=== PATIENT | male | born 1955 | race Caucasian/White ===

== ENCOUNTER → 2020-07-30 12:58 | Outpatient (BNVA) | payer OTHER, SELFPAY | PROVIDERS: PCP Emergency Medicine Emergency Medical Services; Visit Provider Surgery | DX: Z01.812 Encounter for preprocedural laboratory examination (principal); Z20.828 Contact with and (suspected) exposure to other viral communicable diseases | CPT/HCPCS: 87635 ==

== ENCOUNTER 2020-08-05 08:22 | Day surgery (SDC) | payer OTHER, SELFPAY ==
[2020-08-03 13:25] VITALS: BMI 25.8
[2020-08-05 08:41] VITALS: BP 134/63; PULSE 77; RESP 18; TEMP 36.3; O2SAT 98
[2020-08-05] MEDS: sodium chloride 0.9% 1,000 ML 30 ML IV (08:55)
--- NOTE | 2020-08-05 09:19 | ANES.PREANE2 ---
Pre-Anesthetic Assessment Pre-Anesthetic Assessment: Height/Weight: Height 1.73 m Weight 77.111 kg Temp Pulse Resp BP Pulse Ox 97.3 F L 77 18 134/63 98 08/05/20 08:41 08/05/20 08:41 08/05/20 08:41 08/05/20 08:41 08/05/20 08:41 Preop Diagnosis: Screening/dysphagia Proposed Procedure: Operation Date: 08/05/20 09:30 Proposed Procedures p EGD 60424 z12.11 16011 K74.60(Not Applicable) - Johnie Dixon MD s Colonoscopy(Not Applicable) - Johnie Dixon MD Familial anesthetic complications: None Was Beta Tony taken within 24 hours: N/A Last intake: Intake Last Liquid Date 08/04/20 Last Liquid Time 21:00 Last Solid Date 08/03/20 Last Solid Time 20:30 Social: Social History: Tobacco and No alcohol Exam: Pre-Anes Outpt Exam: alert, oriented x 3, clear to auscultation bilaterally and regular rate & rhythm Airway: Cervical ROM: WNL MP: 3 Dentition: False GI: GI: GERD Musc/skel: Musc/skel: Lower Back Pain Anesthetic Plan: ASA status: 2 Anesthesia: MAC Risk of > 500 ml blood loss (7ml/kg in children): No Meds/Allergies Current Medications: Current Medications Generic Name Dose Route Start Last Admin Trade Name Freq PRN Reason Stop Dose Admin Sodium Chloride 1,000 mls @ 30 ml s/hr 08/05/20 08:45 08/05/20 08:55 Sodium Chloride 0.9% IV 30 mls/hr .Q24H DAMIEN Administration PFSH Anesthesia PFSH: Medical History BPH (benign prostatic hyperplasia) Renal calculi Surgical History H/O cataract extraction H/O circumcision H/O colonoscopy H/O cystoscopy H/O lithotripsy H/O sinus surgery History of tonsillectomy Family History Mother Cancer Family/Other Cancer Other Diabetes Denies family history of CAD (coronary artery disease) Anesthesia complication Bleeding disorder Social History Smoking and tobacco status: current every day smoker Alcohol intake: current Alcohol intake frequency: holidays/special occasions only Household members: spouse Marital status: Current occupational status: disabled History of recent travel: No Data Anesthesia Cardiac Studies: No Data to Display
--- NOTE | 2020-08-05 09:52 | ANES.PREANE2 ---
Pre-Anesthetic Assessment Pre-Anesthetic Assessment: Height/Weight: Height 1.73 m Weight 77.111 kg Temp Pulse Resp BP Pulse Ox 97.3 F L 77 18 134/63 98 08/05/20 08:41 08/05/20 08:41 08/05/20 08:41 08/05/20 08:41 08/05/20 08:41 Preop Diagnosis: Screening/dysphagia Proposed Procedure: Operation Date: 08/05/20 09:30 Proposed Procedures p EGD 30390 z12.11 95185 K74.60(Not Applicable) - Johnie Dixon MD s Colonoscopy(Not Applicable) - Johnie Dixon MD Familial anesthetic complications: none Was Beta Tony taken within 24 hours: N/A Last intake: Intake Last Liquid Date 08/04/20 Last Liquid Time 21:00 Last Solid Date 08/03/20 Last Solid Time 20:30 Social: Social History: No alcohol and No tobacco Exam: Pre-Anes Outpt Exam: alert, oriented x 3, clear to auscultation bilaterally and regular rate & rhythm Airway: Cervical ROM: WNL MP: 3 Dentition: False GI: GI: GERD Anesthetic Plan: ASA status: 2 Anesthesia: MAC Risk of > 500 ml blood loss (7ml/kg in children): No Meds/Allergies Current Medications: Current Medications Generic Name Dose Route Start Last Admin Trade Name Freq PRN Reason Stop Dose Admin Sodium Chloride 1,000 mls @ 30 ml s/hr 08/05/20 08:45 08/05/20 08:55 Sodium Chloride 0.9% IV 30 mls/hr .Q24H DAMIEN Administration PFSH Anesthesia PFSH: Medical History BPH (benign prostatic hyperplasia) Renal calculi Surgical History H/O cataract extraction H/O circumcision H/O colonoscopy H/O cystoscopy H/O lithotripsy H/O sinus surgery History of tonsillectomy Family History Mother Cancer Family/Other Cancer Other Diabetes Denies family history of CAD (coronary artery disease) Anesthesia complication Bleeding disorder Social History Smoking and tobacco status: current every day smoker Alcohol intake: current Alcohol intake frequency: holidays/special occasions only Household members: spouse Marital status: Current occupational status: disabled History of recent travel: No Data Anesthesia Cardiac Studies: No Data to Display
--- NOTE | 2020-08-05 09:53 | W.PM.OPSUD ---
Surgery/Procedure H&P Update DATE OF PROCEDURE: August 05, 2020 DATE H&P PERFORMED: 07/23/20 H&P UPDATE INFORMATION: I have reviewed H&P completed within last 30 days, I have examined patient prior to procedure and No changes to prior documentation PREOP DIAGNOSIS: Screening/dysphagia PLANNED PROCEDURE: Operation Date: 08/05/20 09:30 Proposed Procedures p EGD 69895 z12.11 43791 K74.60(Not Applicable) - Johnie Dixon MD s Colonoscopy(Not Applicable) - Johnie Dixon MD
[2020-08-05 10:35] VITALS: BP 102/67; PULSE 68; RESP 14; TEMP 36.6; O2SAT 93
[2020-08-05 10:50] VITALS: BP 124/87; PULSE 77; RESP 18; TEMP 36.5; O2SAT 97
--- NOTE | 2020-08-05 14:22 | ANE.PACU2 ---
Inpatient post-anesthesia follow up: Airway intact: Yes Vital signs: Temperature 97.7 F Pulse Rate 77 Respiratory Rate 18 Blood Pressure 124/87 Pulse Oximetry 97 Oxygen Delivery Me thod Room Air Oxygen Flow Rate Fraction of Inspir ed Oxygen Hydration adequate: Yes Nausea and vomiting: No Pain level: 1 Mental status: Baseline
== END 2020-08-05 11:10 | disposition home or self-care (01) ==
PROVIDERS: PCP Emergency Medicine Emergency Medical Services; Visit Provider Surgery
PROC: 0DJ08ZZ Inspection of Upper Intestinal Tract, Via Natural or Artificial Opening Endoscopic (ICD-10-PCS; CPT 43235; principal; 2020-08-05 09:30)
PROC: 0DJD8ZZ Inspection of Lower Intestinal Tract, Via Natural or Artificial Opening Endoscopic (ICD-10-PCS; CPT 45378; 2020-08-05 09:30)
DX: Z12.11 Encounter for screening for malignant neoplasm of colon (principal); R13.10 Dysphagia, unspecified; K25.9 Gastric ulcer, unspecified as acute or chronic, without hemorrhage or perforation; K22.2 Esophageal obstruction; D12.2 Benign neoplasm of ascending colon; D12.4 Benign neoplasm of descending colon; D12.5 Benign neoplasm of sigmoid colon; D12.3 Benign neoplasm of transverse colon; N40.0 Benign prostatic hyperplasia without lower urinary tract symptoms; F17.210 Nicotine dependence, cigarettes, uncomplicated
CPT/HCPCS: 12345; 43235; 45385; 88305; J2704; J7030

== ENCOUNTER 2020-12-17 08:23 | Outpatient (CLI) | payer OTHER, SELFPAY ==
--- NOTE | 2020-12-17 08:29 | USCV_ITS ---
Teagan Good Age: 65 Gender: M : 1955 Exam Date: 12/17/2020 08:40 Ordering Phys: Roberto Juan DO Technologist: Sugey Rascon Exam Location: [facility] – [place] Indication: AAA SCREENING HISTORY: Diameter (cm) AP x Transverse x Length Velocity (cm/s) Waveform Prox Aorta: 2.30 x 2.76 x 67.40 Mid Aorta: 1.54 x 1.93 x 66.20 Distal Aorta: 1.78 x 2.00 x 77.00 Right Iliac Prox: 0.65 x 1.00 x 106.30 Left Iliac Prox: 0.88 x 1.02 x 119.20 Stent Prox Landing x x Aneurysmal Sac Max x x Lt Lat Sac Dim Rt Lat Sac Dim Stent Dist Landing x x Right Iliac Stent x x Left Iliac Stent x x Right Renal Art Left Renal Art FINDINGS: Comparison: none available. No evidence of abdominal aortic or bilateral iliac aneurysm. Ectatic abdominal aorta with evidence of atherosclerotic plaque noted. There is no evidence of a right common iliac artery aneurysm. There is no evidence of a left common iliac artery aneurysm. CONCLUSIONS Atherosclerotic plaque is noted in the abdominal aorta. No evidence of abdominal aortic or bilateral iliac aneurysm. Dr. Tatiana Christy DO (Electronically Signed) Final Date: 17 December 2020 10:15 S
== END 2020-12-17 08:24 | disposition home or self-care (01) ==
LOC: US 08:25
PROVIDERS: PCP Emergency Medicine Emergency Medical Services; Visit Provider Emergency Medicine Emergency Medical Services
DX: Z13.6 Encounter for screening for cardiovascular disorders (principal)
CPT/HCPCS: 76706

== ENCOUNTER 2022-05-03 06:53 | Outpatient (CLI) | payer OTHER, SELFPAY ==
--- NOTE | 2022-05-03 07:18 | US_ITS ---
WS: [id number] Complete ABDOMINAL ULTRASOUND HISTORY: HX OF CIRRHOSIS COMPARISON: None available. Liver: 17.0 cm in length. Moderately enlarged liver with surface irregularity. Nodular surface but no mass. Diffuse coarsened echotexture with poor penetration. No bile duct dilatation. Portal Vein: Normal hepatopetal flow with monophasic waveform. Gallbladder: Normally distended with no gallstones, wall thickening or pericholecystic fluid. Gallbladder wall thickness: 0.3 cm. Pancreas: Poorly visualized. A small portion of the body is normal. Otherwise completely obscured. CBD: 0.3 cm. Right kidney: 11.2 cm x 4.3 cm x 5.6 cm. Kidney is measuring normal size size but there is increased echogenicity and poor cortical medullary differentiation. No hydronephrosis. Left kidney: 11.2 cm x 3.8 cm x 5.8 cm. No mass, cortical thickening or hydronephrosis. Spleen: Normal size and echogenicity. Aorta and IVC are poorly visualized. No ascites. US/US abdomen complete* [id number] IMPRESSION: 1. Hepatomegaly with cirrhotic liver and hepatic steatosis. 2. No mass or bile duct dilatation. 3. Negative gallbladder. 4. RIGHT chronic medical renal disease.
== END 2022-05-03 06:54 | disposition home or self-care (01) ==
LOC: RAD 06:54
PROVIDERS: PCP Emergency Medicine Emergency Medical Services; Visit Provider Emergency Medicine Emergency Medical Services
DX: K74.60 Unspecified cirrhosis of liver (principal); R16.0 Hepatomegaly, not elsewhere classified; N18.9 Chronic kidney disease, unspecified
CPT/HCPCS: 76700

== ENCOUNTER 2023-01-31 09:12 | Outpatient (CLI) | payer OTHER, SELFPAY ==
--- NOTE | 2023-01-31 09:29 | USCV_ITS ---
Teagan Good Age: 67 Gender: M : 1955 Exam Date: 01/31/2023 10:00 Ordering Phys: Roberto Juan DO Technologist: CT Exam Location: [place] Indication: aaa screening HISTORY: Diameter (cm) AP x Transverse x Length Velocity (cm/s) Waveform Prox Aorta: 2.40 x 2.26 x 68.80 Mid Aorta: 1.88 x 2.09 x 83.80 Distal Aorta: 2.88 x 2.71 x 70.90 Right Iliac Prox: 1.06 x 1.21 x 136.40 Left Iliac Prox: 1.15 x 1.15 x 148.20 Stent Prox Landing x x Aneurysmal Sac Max x x Lt Lat Sac Dim Rt Lat Sac Dim Stent Dist Landing x x Right Iliac Stent x x Left Iliac Stent x x Right Renal Art Left Renal Art FINDINGS: Comparison:. 12/17/20. Ectatic abdominal aorta with evidence of atherosclerotic plaque noted. No evidence of abdominal aortic or bilateral iliac aneurysm. CONCLUSIONS Ectatic abdominal aorta with evidence of atherosclerotic plaque noted. No evidence of abdominal aortic aneurysm. Dr. Tatiana Christy DO (Electronically Signed) Final Date: 31 Jan 2023 12:05 S
--- NOTE | 2023-01-31 09:30 | US_ITS ---
WS: [id number] RIGHT UPPER QUADRANT ULTRASOUND HISTORY: Cirrhotic liver. COMPARISON: 05/03/2022 Liver: 17.6 cm in length. Liver is similar size to the prior examination. Again noted is a nodularity of the surface. No intrahepatic mass. No bile duct dilatation. Portal Vein: Normal hepatopetal flow with monophasic waveform. Gallbladder: Normally distended gallbladder with no stones or wall thickening. CBD: 0.3 cm Pancreas: Normal size and echogenicity. Right kidney: 8.9 cm in length. Low normal size kidney with cortical thinning. No obstruction. No mas s. Aorta and IVC: Unremarkable abdominal aorta and IVC. No ascites. US/US abdomen limited [id number] IMPRESSION: 1. Cirrhotic liver. Stable since 05/03/2022. 2. Normal gallbladder. 3. Low normal size RIGHT kidney. Kidney has decreased in size since 2021. Prio r measurement of 11.2 cm in length.
== END 2023-01-31 09:13 | disposition home or self-care (01) ==
PROVIDERS: PCP Emergency Medicine Emergency Medical Services; Visit Provider Emergency Medicine Emergency Medical Services
DX: K74.60 Unspecified cirrhosis of liver (principal); I77.811 Abdominal aortic ectasia; I70.0 Atherosclerosis of aorta
CPT/HCPCS: 76705; 76706

== ENCOUNTER 2023-06-22 09:12 | Outpatient (CLI) | payer OTHER, SELFPAY ==
--- NOTE | 2023-06-22 08:45 | US_ITS ---
WS: [id number] RENAL ULTRASOUND HISTORY: CHRONIC KIDNEY DZ STAGE 2/DM TYPE 2 COMPARISON: 01/31/2023 TECHNIQUE: 2-D and color Doppler imaging of the kidney submitted. Right kidney: 9.4 cm x 4.5 cm x 5.5 cm. Cortex: 1.1 cm Kidneys low normal size. Increased echogenicity in the renal pelvis. No mass or obstruction. Left kidney: 10.6 cm x 5.0 cm x 5.2 cm. Cortex: 1.4 cm Normal size kidney. Lobulated renal cortex. No obstruction. No mass. Aorta: Mild atherosclerosis aorta. Only a small portion of the aorta is identified. Urinary Bladder: Minimally distended. IMPRESSION: 1. Low normal size kidneys with increased echogenicity. Findings most likely due to early medical hugh al disease. 2. No hydronephrosis or solid mass.
== END 2023-06-22 09:13 | disposition home or self-care (01) ==
LOC: RAD 09:13
PROVIDERS: PCP Emergency Medicine Emergency Medical Services; Visit Provider Internal Medicine Nephrology
DX: E11.22 Type 2 diabetes mellitus with diabetic chronic kidney disease (principal); I12.9 Hypertensive chronic kidney disease with stage 1 through stage 4 chronic kidney disease, or unspecified chronic kidney disease; N18.4 Chronic kidney disease, stage 4 (severe)
CPT/HCPCS: 76770

== ENCOUNTER 2024-03-04 08:01 | Outpatient (CLI) | payer OTHER, SELFPAY ==
--- NOTE | 2024-03-04 08:06 | USR_ITS ---
PROCEDURE INFORMATION: Exam: US Abdomen Complete Exam date and time: 03/04/2024 8:19 AM Age: 68 years old Clinical indication: Condition or disease; Other: Hcc; Additional info: Hcc surveillance TECHNIQUE: Imaging protocol: Real-time ultrasound of the abdomen with image documentation. Complete exam. COMPARISON: US renal BI* [id number] 06/22/2023 9:54 AM FINDINGS: Liver: There is a slightly nodular contour to the liver compatible with patient's known cirrhosis. The liver is echogenic compatible with fatty infiltration. No focal liver mass is identified. No intrahepatic biliary ductal dilatation is seen. The portal vein is patent. Gallbladder: Normal. No gallstones. There is no gallbladder wall thickening. Biliary ducts: Normal. No stones. No dilation. Common bile duct measures 2 mm. Pancreas: The pancreatic head and proximal body are normal in echotexture. The distal body and tail are poorly seen secondary to overlying bowel gas. Right kidney: Normal. No mass. No hydronephrosis. The right kidney measures 9 cm in length. The right kidney is normal in echotexture. Left kidney: Normal. No mass. No hydronephrosis. The left kidney measures 11.6 cm in length and is normal in echotexture. Spleen: Normal. No splenomegaly. Aorta: The proximal aorta is normal in caliber. The mid and distal aorta are poorly seen. Inferior vena cava: Normal. US/US abdomen complete* [id number] IMPRESSION: 1. Fatty infiltration of the liver., cirrhosis. 2. Limited evaluation of midline structures secondary to overlying bowel gas.
== END 2024-03-04 08:02 | disposition home or self-care (01) ==
LOC: RAD 08:01
PROVIDERS: PCP Emergency Medicine Emergency Medical Services; Visit Provider Nurse Practitioner Family
DX: K76.0 Fatty (change of) liver, not elsewhere classified (principal); K74.60 Unspecified cirrhosis of liver
CPT/HCPCS: 76700

== ENCOUNTER 2024-08-29 12:45 | Outpatient (CLI) | payer OTHER, SELFPAY ==
[2024-08-29 13:36] LABS: Prostate Specific Antigen 0.199 ng/mL (0-4)
== END 2024-08-29 12:46 | disposition home or self-care (01) ==
PROVIDERS: PCP Emergency Medicine Emergency Medical Services; Visit Provider Urology
DX: Z12.5 Encounter for screening for malignant neoplasm of prostate (principal)
CPT/HCPCS: 36415; 84153

== ENCOUNTER 2025-06-01 12:05 | Outpatient (CLI) | payer OTHER, SELFPAY ==
[2025-06-01 12:41] LABS: Hematocrit 47.4 % (37-53); Hemoglobin 16.40 g/dL (11.27-16.99); Mean Corpuscular HGB Conc 34.6 g/dL (30-55); Mean Corpuscular Hemoglobin 30.7 pg (27-33); Mean Corpuscular Volume 88.8 fl (82-101); Nucleated Red Blood Cells % 0 %; Platelet Count 205 10^3/cmm (157-399); Red Blood Count 5.34 10^6/uL (3.85-5.65); White Blood Count 6.63 10^3/uL (3.29-11.43)
[2025-06-01 13:07] LABS: Albumin Level 4.5 g/dL (3.5-5.2); Anion Gap 18.3 (5-19); Blood Urea Nitrogen 17 mg/dL (8-23); Calcium 9.7 mg/dL (8.5-10.5); Carbon Dioxide 22 mmol/L (22-29); Chloride 105 mmol/L (98-107); Glucose 129 mg/dL (65-115); Potassium 4.3 mmol/L (3.5-5.1); Sodium 141 mmol/L (136-145)
[2025-06-01 13:09] LABS: Creatinine Urine, Random 124 mg/dL (39-259); Microalbum Creatinine Ratio Ur 8 mg/dL (0-20)
[2025-06-01 13:17] LABS: Calcium 9.8 mg/dL (8.5-10.5)
== END 2025-06-01 12:06 | disposition home or self-care (01) ==
LOC: LAB 12:11
PROVIDERS: Absent Provider Nurse Practitioner Family; PCP Emergency Medicine Emergency Medical Services; Visit Provider Internal Medicine Nephrology
DX: Z01.89 Encounter for other specified special examinations (principal)
CPT/HCPCS: 36415; 80069; 82044; 82310; 83970; 85025